=== PATIENT | male | born 1950 | race Caucasian/White ===

== ENCOUNTER 2017-12-08 13:55 | Observation (INO) | payer MEDICARE, MEDICAID ==
[~2017-12-08] VITALS: Ht 177.8 cm; Wt 82.6 kg
[2017-12-08] MEDS ORDERED: NITROGLYCERIN SINGLE TAB 0.4 MG SL ONE (14:12)
[2017-12-08] MEDS ORDERED: DARU800T2 PO (14:20)
[2017-12-08] MEDS ORDERED: RITO100C PO (14:20)
[2017-12-08] MEDS ORDERED: DOLU50TA PO (14:20)
[2017-12-08] MEDS ORDERED: BENA10TA2 PO (14:20)
[2017-12-08] MEDS ORDERED: ATOR10TA9 PO (14:20)
[2017-12-08] MEDS ORDERED: NITROGLYCERIN SINGLE TAB 0.4 MG SL PRN (14:30)
[2017-12-08 14:46] LABS: BASOPHILS # (AUTO) 0.03 x10^3/uL (0-0.1); BASOPHILS % (AUTO) 0 % (0-1); EOSINOPHILS # (AUTO) 0.14 x10^3/uL (0-0.4); EOSINOPHILS % (AUTO) 1 % (1-7); LYMPHOCYTES # (AUTO) 1.62 x10^3/uL (1-3.4); LYMPHOCYTES % (AUTO) 14 % (22-44); MD NO; MEAN CORPUSCULAR HEMOGLOBIN 30.5 pg (27.5-34.5); MEAN CORPUSCULAR HGB CONC 33.5 g/dL (33.2-36.2); MEAN CORPUSCULAR VOLUME 90.9 fL (81-97); MEAN PLATELET VOLUME 7.9 fL (7.4-10.4); MONOCYTES % (AUTO) 8 % (2-9); NEUTROPHILS # (AUTO) 8.79 x10^3/uL (1.8-6.8); NEUTROPHILS % (AUTO) 77 % (42-75); PLATELET COUNT 298 x10^3/uL (130-400); RED BLOOD COUNT 4.67 x10^6/uL (4.38-5.82); RED CELL DISTRIBUTION WIDTH 12.7 % (9.4-14.8)
[2017-12-08 14:55] LABS: INTERNATIONAL NORMALIZED RATIO 0.95 (0.93-1.1); PROTHROMBIN TIME 9.9 Seconds (9.6-11.5)
[2017-12-08 15:00] LABS: ALBUMIN 3.6 g/dL (3.4-5.0); ANION GAP 5 mmol/L (5-15); CALCIUM 8.7 mg/dL (8.5-10.1); CHLORIDE 107 mmol/L (98-107)
[2017-12-08 15:07] LABS: ALANINE AMINOTRANSFERASE 14 U/L (12-78); ALKALINE PHOSPHATASE 66 U/L (45-117); BILIRUBIN,TOTAL 0.6 mg/dL (0.2-1.0); CREATININE 1.61 mg/dL (0.7-1.3); TOTAL PROTEIN 7.5 g/dL (6.4-8.2); TROPONIN I < 0.015 ng/mL (0.000-0.045)
[2017-12-08] MEDS ORDERED: SODIUM CHLORIDE FLUSH 10ML SYR IVF PRN (16:30)
[2017-12-08] MEDS ORDERED: LABETALOL 5MG/ML, 20ML IVPush PRN (17:00)
[2017-12-08] MEDS ORDERED: hydrALAzine 20 MG/ML, 1ML IVPush PRN (17:00)
[2017-12-08 17:23] VITALS: BP 136/79
[2017-12-08] MEDS: HEPARIN 5,000 UNITS/ML, 1ML SQ SCH (18:06)
[2017-12-08 18:29] VITALS: BP 134/80
[2017-12-08] MEDS ORDERED: RITONAVIR 100 MG TABLET PO SCH (21:00)
[2017-12-08] MEDS ORDERED: BENAZEPRIL 10 MG TABLET PO SCH (21:00)
[2017-12-08] MEDS ORDERED: ATORVASTATIN 10 MG TABLET PO SCH (21:00)
[2017-12-08] MEDS ORDERED: DARUNAVIR 800 MG TABLET PO SCH (21:00)
[2017-12-08 21:20] LABS: TROPONIN I < 0.015 ng/mL (0.000-0.045)
[2017-12-09] MEDS: HEPARIN 5,000 UNITS/ML, 1ML SQ SCH ×2 (00:56→08:13)
[2017-12-09 01:03] VITALS: BP 127/80
[2017-12-09 05:27] LABS: ALBUMIN 3.5 g/dL (3.4-5.0); ANION GAP 6 mmol/L (5-15); CALCIUM 8.6 mg/dL (8.5-10.1); CHLORIDE 106 mmol/L (98-107); CREATININE 1.47 mg/dL (0.7-1.3)
[2017-12-09] MEDS ORDERED: ASPIRIN 81 MG TABLET EC PO SCH (06:00)
[2017-12-09 08:11] VITALS: BP 132/87
[2017-12-09] MEDS ORDERED: REGADENOSON 0.4 MG/5 ML SYRINGE ONE (08:41)
[2017-12-09] MEDS ORDERED: DOLUTEGRAVIR SODIUM 50 MG PO SCH ×2 (09:00→21:00)
[2017-12-09] MEDS ORDERED: RITONAVIR 100 MG TABLET PO SCH (09:00)
[2017-12-09] MEDS ORDERED: DARUNAVIR 800 MG TABLET PO SCH (09:00)
[2017-12-09] MEDS ORDERED: BENAZEPRIL 10 MG TABLET PO SCH (09:00)
== END 2017-12-09 14:08 | disposition home or self-care (01) ==
LOC: ED 15:26 → INTOOBSV 16:19 → EDIP 16:19 → 5SO 17:08 → DCLOUNGE 12-09 14:00
PROVIDERS: ADMIT Hospitalist; ATTEND Hospitalist
DX: R07.89 Other chest pain (principal); I12.9 Hypertensive chronic kidney disease with stage 1 through stage 4 chronic kidney disease, or unspecified chronic kidney disease; E78.5 Hyperlipidemia, unspecified; N18.3 Chronic kidney disease, stage 3 (moderate); F17.200 Nicotine dependence, unspecified, uncomplicated; Z83.3 Family history of diabetes mellitus
CPT/HCPCS: 36415; 71045; 71046; 78452; 80048; 80053; 82040; 83735; 84484; 85025; 85610; 85730; 93005; 93017; 96372; 99285; A9502; G0378; J1644; J2785